=== PATIENT | female | born 1965 | race Hispanic/Latino ===

== ENCOUNTER 2021-02-01 10:18 | Outpatient (CLI) | payer OTHER ==
--- NOTE | 2021-02-02 09:41 | XRay Report ---
XR knee 1-2V LT INDICATION / CLINICAL INFORMATION: PAIN IN LEFT KNEE. COMPARISON: None available. FINDINGS: BONES/JOINT(S): No acute fracture or subluxation. Moderate tricompartmental DJD. Small joint effusion . SOFT TISSUES: No significant abnormality. ADDITIONAL FINDINGS: None. Signer Name: Aquiles Smith MD Signed: 02/02/2021 9:37 AM Workstation Name: [id number]
== END 2021-02-01 10:19 | disposition home or self-care (01) ==
LOC: XRAY 10:18
PROVIDERS: ATTEND Internal Medicine
DX: M17.12 Unilateral primary osteoarthritis, left knee (principal); M25.462 Effusion, left knee